=== PATIENT | male | born 1960 | race Caucasian/White ===

== ENCOUNTER 2020-11-30 20:57 | Emergency (ER) | payer MEDICAID, SELFPAY ==
[~2020-11-30] VITALS: Ht 170.2 cm; Wt 72.6 kg
[2020-11-30 21:35] VITALS: BP_SYST 119
[2020-11-30 23:30] VITALS: BP_SYST 117
== END 2020-11-30 23:30 | disposition home or self-care (01) ==
LOC: SED 20:57
DX: M79.18 Myalgia, other site (principal); E11.9 Type 2 diabetes mellitus without complications; Z88.0 Allergy status to penicillin
CPT/HCPCS: 81002; 82962; 99283

== ENCOUNTER 2020-12-01 14:09 | Emergency (ER) | payer MEDICAID, SELFPAY ==
[~2020-12-01] VITALS: Ht 170.2 cm; Wt 72.6 kg
[2020-12-01 14:10] VITALS: BP_SYST 107
== END 2020-12-01 17:30 | disposition home or self-care (01) ==
LOC: SED 14:09
DX: R07.89 Other chest pain (principal); E11.9 Type 2 diabetes mellitus without complications; Z88.0 Allergy status to penicillin
CPT/HCPCS: 36415; 71045; 84484; 93005; 99285